=== PATIENT | female | born 1990 | race Hispanic/Latino ===

== ENCOUNTER 2017-02-05 16:17 | Emergency (ER) | payer OTHER ==
[~2017-02-05] VITALS: Ht 165.1 cm; Wt 61.2 kg
--- NOTE | 2017-02-05 16:40 | ED CARDIAC/CP/PALPITATIONS ---
History of Present Illness General Chief Complaint: Palpitations Stated Complaint: BIBA FROM FOR ?SVT Source: patient, old records Exam Limitations: no limitations Vital Signs & Intake/Output Vital Signs & Intake/Output Vital Signs Date Time Temp Pulse Resp B/P B/P Pulse O2 O2 Flow FiO2 Mean Ox Delivery Rate 02/05 1717 97.0 103 22 100/69 100 Room Air 02/05 1635 Room Air 02/05 1619 97.0 122 20 118/78 99 Room Air Allergies Coded Allergies: NO KNOWN ALLERGIES (02/05/17) Triage Note: PT BIBA FROM [facility]CTORS OFFICE, PER EMS PT WAS IN SVT WOTH RATE IN THE 200'S. WHEN PT WAS MOVED FROM DOCTOR MONITOR PT CONVERTED TO SINUS TACH RATE 115-125. PT IS ALERT AND HAS NO COMPLAINTS. IV EST IN FIELD. PT HAS HX OF SVT Triage Nurses Notes Reviewed? yes Onset: Abrupt Duration: hour(s): (2.5), constant Timing: recent history Quality/Severity: mild, moderate Location: central Radiation: no radiation Activities at Onset: EATING LUNCH Nitro Today/Relief: no nitro taken today Aspirin Today: no aspirin today Associated Symptoms: DIZZINESS, PALPITATIONS : No Patient currently breastfeeds: No HPI: 26-year-old female with history of SVT for which she is been worked up by several cardiologists in the past presents to ER for evaluation brought in by ambulance after she was found to be in SVT at the urgent care just prior to arrival. The patient converted back to sinus tachycardia on her own. She states that around 2:00 she went out for lunch when she began to have palpitations feeling dizzy lightheaded. The patient reports she's had history of similar episodes in the past. She denies any chest pain shortness of breath pain with inspiration abdominal pain nausea vomiting. On arrival patient states she feels tired however is otherwise without any complaints. She does not smoke she is on a control recent travel or immobility (RAMONITA IVERSON) Past History Travel History Traveled to [place] past 21 day No Medical History Any Pertinent Medical History? see below for history Cardiovascular: SVT Surgical History Surgical History: none Psychosocial History What is your primary language [place] Tobacco Use: Never used Family History Hx Contributory? No (RAMONITA IVERSON) Review of Systems Review of Systems Constitutional: Reports: see HPI. All Other Systems: Reviewed and Negative Comments Review of systems: See HPI, All other systems negative. Constitutional, no chills no fever, no malaise HEENT: No visual changes no sore throat no congestion Cardiovascular: No chest pain , palpitation , no orthopnea Skin: no rashes, no change in skin Respiratory: No dyspnea no cough no sputum no hemoptysis GI: No nausea no vomiting, no diarrhea, no bloating/constipation : No dysuria No hematuria, Muscle skeletal: No joint pain, no joint swelling, no back pain Neurologic: No numbness no headache Psych: No stress Heme/endocrine: No bruising Immunology: No lymphadenopathy (RAMONITA IVERSON) Physical Exam Physical Exam General Appearance: well developed/nourished, no apparent distress, alert, awake Cardiovascular: regular rate/rhythm Comments: Well-developed well-nourished person in no acute distress HEENT: Normal EENT exam; PERRL, EOMI. HEAD is atraumatic. moist mucous membranes. Neck: Supple, no lymphadenopathy, normal range of motion w Back: Nontender, no CVA tenderness. Full range of motion Cardiovascular: Regular rate and rhythms no murmurs rubs or gallops, normal JVP Respiratory: Chest nontender.There were no bony deformities, no asymmetry. No respiratory distress. Patient speaking in full complete sentences. Breath sounds clear to auscultation bilaterally: NO W/R/R Abdomen: Soft, nontender nondistended, no appreciable organomegaly. Normal bowel sounds. No rebound/guarding, Extremity: No edema, full range of motion of extremities Neuro: Alert oriented x3, motor sensory normal, There were no obvious focal neurologic abnormalities. Skin: No appreciable rash on exposed skin, skin is warm and dry. Psych: Mood and affect is normal, memory and judgment is normal. Core Measures ACS in differential dx? No Severe Sepsis Present: No Septic Shock Present: No (RAMONITA IVERSON) Progress Differential Diagnosis: AMI, aortic dissection, atrial fibrillation, hyperkalemia, musculoskeletal pain, myocarditis, pancreatitis, pericarditis, pneumonia, pneumothorax, PSVT, unstable angina, V-fib/V-Tach Plan of Care: Orders Procedure Date/time Status Add-on Test (ER Only) 02/05 1704 Active Telemetry/Wool Sorter 02/05 162 Active Saline Lock 02/05 162 Active TSH REFLEX 02/05 1625 Complete PROTHROMBIN TIME 02/05 162 Complete HUMAN BETA HCG SCREEN 02/05 162 Complete COMPREHENSIVE METABOLIC PANEL 02/05 1625 Complete CBC WITHOUT DIFFERENTIAL 02/05 1625 Complete EKG 02/05 1619 Active D-DIMER 02/05 161 Complete Laboratory Tests 02/05/17 1614: Anion Gap 12, Estimated GFR > 60, BUN/Creatinine Ratio 11.4, Glucose 88, Calcium 9.5, Total Bilirubin 0.5, AST 25, ALT 39, Alkaline Phosphatase 76, Total Protein 7.5, Albumin 4.6, Globulin 2.9, Albumin/Globulin Ratio 1.6, TSH &T3 &Free T4 Intrp 1.450, Total Beta HCG NEGATIVE, PT 12.6 H, INR 1.20 H, D-Dimer < 200, CBC w Diff NO MAN DIFF REQ, RBC 4.64, MCV 86.9, MCH 28.9, RDW 14.1, MPV 9.6, Gran % 64.0, Lymphocytes % 29.0, Monocytes % 5.9, Eosinophils % 0.7, Basophils % 0.4, Absolute Granulocytes 4.5, Absolute Lymphocytes 2.0, Absolute Monocytes 0.4 , Absolute Eosinophils 0, Absolute Basophils 0, PUBS MCHC 33.3 Labs ordered old records reviewed patient noted to be sinus tach at 120 at this time we'll continue to monitor her IV fluids case discussed with Dr. LEE 1700 patient sinus tach at 100 this time pending callback and cardiology resting without any complaints case d/w dr guerra who advised to have the pt f/u him, no need for rate controlling medications at tis time, as pts hr has respnoded with fluids 1800 pt reports to feeling improved, asymptomatic, nsr 90s-105 on monitor, I discussed with the patient at length all of their results. I had an extensive conversation regarding need for close follow up with their primary care physician this week as well as return precautions. I answered all of their questions, they feel comfortable with the plan and follow-up care. (TERI CONWAY,RAMONITA) Diagnostic Imaging: Viewed by Me: Radiology Read. Discussed w/RAD: Radiology Read. Radiology Impression: PATIENT: NADIYA VENEGAS V PRESENT AGE: 26 PATIENT ACCOUNT NO: [id number] : 89 LOCATION: [facility] ORDERING PHYSICIAN: RAMONITA CONWAY SERVICE DATE: 02/05/17 EXAM TYPE: RAD - XRY-PORTABLE CHEST XRAY EXAMINATION: XR PORTABLE CHEST CLINICAL INFORMATION: SVT COMPARISON: None TECHNIQUE: Portable frontal view of the chest was obtained. FINDINGS: The lungs are well expanded. There is no focal consolidation, edema, or effusion. No pneumothorax. The cardiomediastinal silhouette is within normal limits. No acute osseous abnormality. IMPRESSION: Clear lungs. DICTATED BY: SHARIF BUCHANAN MD DATE/TIME DICTATED:02/05/171744 WOOL HAT SANDING MACHINE OPERATOR:MILIND DATE/TIME TRANSCRIBED:02/05/171744 CONFIDENTIAL, DO NOT COPY WITHOUT APPROPRIATE AUTHORIZATION. <Electronically signed in Other Vendor System> SIGNED BY: SHARIF BUCHANAN MD 02/05/171751 Pre-Hospital EKG: SVT AT 200 Initial ED EKG: STACH AT 120, NO ACUTE ST SEG CHANGES, NORMAL AXIS Prior EKG: unchanged Rhythm Strip: sinus tachycardia (RAMONITA IVERSON) Departure Departure Time of Disposition: 1802 Disposition: HOME OR SELF CARE Condition: Stable Clinical Impression Primary Impression: SVT (supraventricular tachycardia) Referrals: KACI CASTILLO APRN (PCP/Family) MOI JUAREZ,Gayathri SNELL Additional Instructions: follow up with component inspector dr guerra, return imediately if you redevelop symptoms or have any concerns. Departure Forms: Customer Survey General Discharge Information (RAMONITA IVERSON) PA/SOLAR PHOTOVOLTAIC INSTALLER Co-Sign Statement Statement: ED Attending supervision documentation- [] I saw and evaluated the patient. I have also reviewed all the pertinent lab results and diagnostic results. I agree with the findings and the plan of care as documented in the PA's/SOLAR PHOTOVOLTAIC INSTALLER's documentation. [x] I have reviewed the ED Record and agree with the PA's/SOLAR PHOTOVOLTAIC INSTALLER's documentation. [] Additions or exceptions (if any) to the PAs/SOLAR PHOTOVOLTAIC INSTALLER's note and plan are summarized below: [] (FLORA LEE DO) Critical Care Note Critical Care Note Critical Care Time: non-applicable (RAMONITA IVERSON)
[2017-02-05 17:04] LABS: ABSOLUTE BASOPHIL COUNT 0 /CUMM (0.0-0.2); ABSOLUTE EOSINOPHIL COUNT 0 /CUMM (0.0-0.7); ABSOLUTE GRANULOCYTE CT 4.5 /CUMM (1.4-6.5); ABSOLUTE MONOCYTE COUNT 0.4 /CUMM (0.10-0.60); BASOPHIL % 0.4 % (0.0-2.0); EOSINOPHIL % 0.7 % (0-5); HEMATOCRIT 40.3 % (37-47); MEAN CORPUSCULAR HGB 28.9 PG (27.0-31.0); MEAN CORPUSCULAR HGB CONC 33.3 G/DL (33.0-37.0); MEAN CORPUSCULAR VOLUME 86.9 FL (81.0-99.0); MEAN PLATELET VOLUME 9.6 FL (7.4-10.4); PLATELET COUNT 257 /CUMM (130-400); RBC DISTRIBUTION WIDTH 14.1 % (11.5-14.5); RED BLOOD CELL CT 4.64 /CUMM (4.20-5.40)
[2017-02-05 17:13] LABS: PT 12.6 SEC (9.4-12.5)
[2017-02-05 17:17] VITALS: BP 100/69
--- NOTE | 2017-02-05 17:52 | RADIOLOGY REPORT ---
EXAMINATION: XR PORTABLE CHEST CLINICAL INFORMATION: SVT COMPARISON: None TECHNIQUE: Portable frontal view of the chest was obtained. FINDINGS: The lungs are well expanded. There is no focal consolidation, edema, or effusion. No pneumothorax. The cardiomediastinal silhouette is within normal limits. No acute osseous abnormality. IMPRESSION: Clear lungs.
== END 2017-02-05 18:29 ==
LOC: ERH 16:17
PROVIDERS: Physician Assistant Medical
DX: I47.1 Supraventricular tachycardia (principal)
CPT/HCPCS: 93005; 93010